=== PATIENT | female | born 1990 | race Two or more races ===

== ENCOUNTER → 2018-08-18 | Outpatient (REF) | payer OTHER | LOC: M SFHCLERA 13:43 | PROVIDERS: ATTEND Physician Assistant | DX: N39.0 Urinary tract infection, site not specified (principal) ==

== ENCOUNTER → 2018-11-13 | Outpatient (REF) | payer OTHER ==
[2018-11-14 07:20] LABS: CHLAMYDIA DNA AMPLIFICATION NEGATIVE (NEGATIVE); GC DNA AMPLIFICATION NEGATIVE (NEGATIVE)
== END ==
LOC: M SFHCLERA 14:30
PROVIDERS: ATTEND Physician Assistant Medical
DX: R10.2 Pelvic and perineal pain (principal)
CPT/HCPCS: 81002; 87070; 87086; 87205; 87661; G0463

== ENCOUNTER 2019-06-03 07:23 | Inpatient (IN) | payer OTHER ==
[~2019-06-03] VITALS: Ht 170.2 cm; Wt 103.0 kg
[~2019-06-03 07:23] MED LIST: PRENTAB9 PO; PROBCAP14 PO; VALT500T PO
[2019-06-03] MEDS ORDERED: BICITRA 30ML SOLN UDC PO ONE (08:00)
[2019-06-03] MEDS ORDERED: CLINDAMYCIN 900 MG in IV 1 EA IV ONE (08:00)
[2019-06-03] MEDS ORDERED: LACTATED RINGER'S 1000 ML IV ONE (08:00)
[2019-06-03] MEDS ORDERED: AZITHROMYCIN INJ 500 MG, VIAL MATE ADAPTER 1 EACH in D5W 250 ML IV ONE (08:00)
[2019-06-03] MEDS ORDERED: ceFAZolin SOD 2 GM in IV 1 EA IV ONE (08:15)
[2019-06-03] MEDS ORDERED: BUPIVACAINE HCL 0.25% 10 ML VIAL XX ONE (08:15)
--- NOTE | 2019-06-03 08:20 | HPE ---
DATE OF PLANNED ADMISSION: 06/03/2019 This lady is a 29-year-old, 3, para 1, last menstrual period (LMP) 09/08/2018, estimated date of confinement (EDC) 06/16/2019, booked for an elective primary section because of placenta previa and herpes simplex virus (HSV) outbreak. She also has a history of pruritic urticarial papules and plaques of (PUPPP), which is presently in the resolution phase. PAST HISTORY: In 2014, had a spontaneous . In 2016 at 40 weeks, spontaneous vaginal delivery of a live , uncomplicated, at term. Body mass index (BMI) is 30.54. Has had no active bleeding during the . Risk factors are placenta previa and HSV outbreak despite the prophylactic use of Zovirax. LAB WORK: Blood type is A positive, HIV negative, hepatitis negative, RPR negative, rubella immune. Varicella immune. Urine was negative. Gonorrhea and chlamydia are negative. 1-hour glucose is not available. GBS status is not available. Quad screen is negative. The rest of the examination is unremarkable. She is normocephalic, atraumatic. Neck full range of motions. Pupils equal and reactive to light. Distal pulses are symmetric. No evidence of deep venous thrombosis (DVT), pulmonary embolism (PE), or superficial phlebitis. Chest is clear bilaterally to bases. No wheezes or rhonchi. No costovertebral angle (CVA) tenderness. Abdomen is soft. Four quadrant bowel sounds are noted. Vertex presenting. heart rate is 140. Symphysis fundus height is at 32-35 weeks of gestation. She does have a bit of a rash, which is secondary resolution to her PUPPP. She has no longer pruritus. She has no arthralgia, myalgia, complaint of joint pain. No complaint of cough, wheeze, shortness of breath, or dyspnea on exertion. No bruising. No bleeding. No infections. Neurologically complete. No incontinence, urgency, or frequency. No nausea, vomiting, diarrhea, or constipation. She has no heat or cold sensitivities. GYNECOLOGIC HISTORY: Is unremarkable. She has had a history of HSV with outbreaks presently and is on Zovirax. PAST MEDICAL: Unremarkable. SURGERY HISTORY: Unremarkable. She does not smoke, drink, abuse drugs. No domestic violence. Good support with her . ALLERGIES: She is allergic to PENICILLIN with having hives. Presently, she is on Zovirax, vitamins, and probiotics. We discussed the issue of placenta previa and the need for primary section, both because of the placenta previa and the HSV outbreaks which are ongoing despite Valtrex. We discussed the risks and benefits of section, including hemorrhage, infection, perforation, , reoperation, remote possibility of hysterectomy remote possibility of blood transfusion, remote possibility of the ending up in the intensive care unit (NICU) or may have lacerations, tears, or scratches at time of delivery. We also reviewed the unlikelihood but high risk of having hysterectomy because of placenta previa and also the higher incidence of requiring a blood transfusion. Patient expressed understanding of same and is anxious to move forward. She is electively booked for 06/03/2019. We did explain about the two IVs being a hemorrhage risk higher than one. One will be for IV medication; the other in case we need it for blood. The discussion went to sterilization, and the patient was asking about tubal ligation. We mentioned that tubal ligation is a permanent procedure and there is a failure rate of less than 1%. It is only done if the patient is absolutely certain. We can place on the requisition for tubal; however, if there is an issue with the baby, if there is an issue with the uterus and raiza and bleeding, the procedure will be deferred. Patient expressed relief that we will ask prior to going forward with that procedure. Symphysis fundus height as mentioned was 35. heart was in the 140s. Blood pressure today was 121/58. Respirations are 18. Total weight is 220. Her BMI initially was 28.2. The patient is coming back for review of consent forms and signed documents in the next visit. We did discuss pelvic rest precautions to her , maintaining a full tank of gas in case of any bleeding, urgently getting the patient to hospital. Both expressed understanding. We had a 40-minute discussion. All questions were answered.
[2019-06-03] MEDS ORDERED: LR 1,000 ML IV SCH (09:00)
[2019-06-03 09:01] LABS: HEMATOCRIT 30.9 % (36.0-47.0); HEMOGLOBIN 9.4 g/dl (12.0-15.5); MEAN CORPUSCULAR HEMOGLOBIN 25.1 pg (27.0-33.0); MEAN CORPUSCULAR HGB CONC 30.4 g/dl (32.0-36.5); MEAN CORPUSCULAR VOLUME 82.6 fl (80.0-96.0); PLATELET COUNT, AUTOMATED 169 10^3/uL (150-450); RED BLOOD COUNT 3.74 10^6/uL (4.00-5.40); WHITE BLOOD COUNT 7.7 10^3/uL (4.0-10.0)
[2019-06-03] MEDS ORDERED: MORPHINE PRES-FREE INJ 10 MG/10 ML VIAL (J2274) As Ordered ONE (09:03)
[2019-06-03] MEDS ORDERED: ACETAMINOPHEN 650 MG SUPP PR ONE (09:45)
[2019-06-03] MEDS ORDERED: ONDANSETRON 4MG/2ML VIAL (J2405) IV PRN ×2 (10:15→12:00)
[2019-06-03] MEDS ORDERED: diphenhydrAMINE INJ 50MG/ML VIAL (J1200) IV PRN (10:15)
[2019-06-03] MEDS ORDERED: METOCLOPRAMIDE INJ 10MG/2ML VIAL (J2765) IV PRN (10:15)
[2019-06-03] MEDS ORDERED: NALOXONE INJ 0.4 MG/1 ML VIAL (J2310) IV PRN ×2 (10:15)
[2019-06-03] MEDS ORDERED: NALBUPHINE HCL 10 MG/ML AMP (J2300) IV PRN ×2 (10:15→12:00)
[2019-06-03] MEDS ORDERED: OXYTOCIN INJ 10 UNITS/ML VIAL (J2590) As Ordered ONE ×2 (10:24→10:46)
[2019-06-03] MEDS ORDERED: ONDANSETRON 4MG/2ML VIAL (J2405) As Ordered ONE ×2 (10:41→12:01)
[2019-06-03] MEDS ORDERED: dexameTHASONE 4 MG/ML 1ML VIAL (J1100) As Ordered ONE (10:41)
[2019-06-03] MEDS ORDERED: KETOROLAC 60 MG/2 ML VIAL (J1885) As Ordered ONE (10:41)
[2019-06-03 11:02] LABS: CORD GAS ABE V -2.1; CORD GAS HCO3 V 23.1 MEQ/L; CORD GAS O2 SAT V 76.2 %; CORD GAS PCO2 V 41.3 mmHg; CORD GAS PH V 7.366 UNITS; CORD GAS PO2 V 34.3 mmHg; CORD GAS SBC V 22.3 MEQ/L; CORD GAS TCO2 V 24.4 MEQ/L
[2019-06-03 11:04] LABS: CORD GAS ABE A -2.4; CORD GAS HCO3 A 24.9 MEQ/L; CORD GAS O2 SAT A 36.4 %; CORD GAS PCO2 A 54.8 mmHg; CORD GAS PH A 7.276 UNITS; CORD GAS PO2 A 18.2 mmHg; CORD GAS SBC A 21.3 MEQ/L; CORD GAS TCO2 A 26.6 MEQ/L
[2019-06-03] MEDS ORDERED: OXYTOCIN 30 UNITS IN 0.9% NaCl 500ML IV BAG (J2590) As Ordered ONE (11:52)
[2019-06-03] MEDS ORDERED: fentaNYL 100 MCG/2 ML INJECTION (J3010) IV PRN (12:00)
[2019-06-03] MEDS ORDERED: MEPERIDINE INJ 25 MG/ML VIAL (J2175) IV PRN (12:00)
[2019-06-03] MEDS ORDERED: PERCOCET 5MG/325MG TAB PO PRN ×3 (12:00→16:30)
[2019-06-03] MEDS ORDERED: HYDROMORPHONE HCL 0.5 MG/ 0.5 ML SYRINGE (J1170 PER 1) IV PRN (12:00)
[2019-06-03] MEDS ORDERED: HYDROMORPHONE HCL 0.5 MG/ 0.5 ML SYRINGE (J1170 PER 1) As Ordered ONE (12:01)
[2019-06-03] MEDS ORDERED: RHOGAM 300 MCG (1500 IU) INJ (J2790) IM SCH ×2 (12:30→12:45)
[2019-06-03] MEDS ORDERED: MEASLES,MUMPS,RUBELLA VACCINE INJ (MMR-II) (90707) SC SCH ×3 (12:30→12:45)
[2019-06-03] MEDS ORDERED: ACETAMINOPHEN 500 MG TAB PO PRN (12:45)
[2019-06-03] MEDS ORDERED: DOCUSATE SODIUM 100 MG CAP PO PRN (12:45)
[2019-06-03] MEDS ORDERED: MOM 30ML SUSPENSION UDC PO PRN (12:45)
[2019-06-03] MEDS ORDERED: ACETAMINOPHEN TAB 650MG DOSE (2X325MG) PO PRN (12:45)
[2019-06-03] MEDS ORDERED: OXYTOCIN DRIP 30 UNITS in IV 1 EA IV ONE (13:00)
--- NOTE | 2019-06-03 13:11 | RO ---
DATE OF PROCEDURE: 06/03/2019 PREOPERATIVE DIAGNOSIS: This lady is a 29-year-old, 3, para 2, admitted for primary section and bilateral tubal ligation by Filshie clip with satisfied parity. Her primary section risk was placenta previa without hemorrhage. POSTOPERATIVE DIAGNOSIS: This lady is a 29-year-old, 3, para 2, admitted for primary section and bilateral tubal ligation by Filshie clip with satisfied parity. Her primary section risk was placenta previa without hemorrhage, plus polyhydramnios. OPERATION PROPOSED: Primary section and bilateral tubal ligation by Filshie clip. OPERATION PERFORMED: Primary section, bilateral tubal ligation by Filshie clip. SURGEON: Dr. Cruz Smith MANAGER ACTION: Dr. Tu De Paz for extraction, extraction and visualization. ANESTHESIA: Spinal plus local anesthetic for intraperitoneal procedures. ESTIMATED BLOOD LOSS: 1000 mL. DESCRIPTION OF PROCEDURE: Sequentials were in place. Antibiotics appropriately one hour preoperatively. Roblero catheter in the bladder draining clear urine and acetaminophen suppository 1300 mg per rectum. After adequate time out, prepped and draped in the supine position. Pfannenstiel incision was made two fingerbreadths above the symphysis pubis passing through abdominal layers securing hemostasis. Opening the peritoneal cavity, we placed the Mobius retractor in place and then reflected the bladder down anteriorly. A low transverse incision was made into the uterus and unfortunately we cut right into the placenta. We had to go through the placenta, do an artificial rupture of membranes (AROM), draining clear liquid, approximately 600-700 mL of amniotic fluid. We were then able to extract the baby, a live male infant, weighing 9 pounds 4 ounces 4200 grams, Apgars of 8 and 9 at one and five minutes respectively. Arterial pH 7.27, base excess -2.4; venous pH 7.36, base excess -2.1. The placenta was manually removed and came off the anterior wall quite nicely and came off the posterior wall as well, just a few membranes were removed, and the uterus was raiza well down under Pitocin. We then swept out the intrauterine cavity. There was no evidence of tissue or membranes left. The lower segment was oversewn in the usual fashion in two layers, imbricating the second layer. Then reperitonealization was performed. With instrument and pad count correct, we exposed both tubes. We asked the patient again if she wished to have a tubal ligation. She responded in the affirmative. Therefore, bilateral tubal ligation with Filshie clips were applied with a stay suture proximal to the clip for insurance purposes. We then went ahead and replaced the tubes and ovaries back in the abdomen. We visualized the lower segment which was clean and dry. Then closed the abdomen with running stitch for the peritoneum, same for the fascia, interrupted for subcutaneous, Dexon to the skin, Marcaine 0.25% 8 mL at the incisional site. We did put on Telfa and reinforced bandage as there was some oozing from the incisional site. The patient was sent to recovery in good condition.
[2019-06-03 13:20] VITALS: BP 132/76
[2019-06-03 13:53] VITALS: BP 133/74
[2019-06-03 15:00] VITALS: BP 133/74
[2019-06-03] MEDS: LR 1,000 ML IV SCH (16:17)
[2019-06-03] MEDS ORDERED: SIMETHICONE 80 MG CHEW TAB PO PRN (16:30)
[2019-06-03] MEDS: ONDANSETRON 4MG/2ML VIAL (J2405) IV SCH (16:52)
[2019-06-03] MEDS: KETOROLAC 30 MG/ML VIAL (J1885) IV SCH (17:59)
[2019-06-03 18:14] VITALS: BP 128/70
[2019-06-03 22:00] VITALS: BP 116/63
[2019-06-04] VITALS (7 sets, daily range): BP systolic 98–136; BP diastolic 51–81
[2019-06-04] MEDS: ONDANSETRON 4MG/2ML VIAL (J2405) IV SCH ×3 (00:41→12:00)
[2019-06-04] MEDS: KETOROLAC 30 MG/ML VIAL (J1885) IV SCH ×2 (00:41→06:15)
[2019-06-04] MEDS: LR 1,000 ML IV SCH ×3 (03:00→12:27)
[2019-06-04 07:43] LABS: HEMATOCRIT 26.7 % (36.0-47.0); HEMOGLOBIN 8.5 g/dl (12.0-15.5); MEAN CORPUSCULAR HEMOGLOBIN 25.5 pg (27.0-33.0); MEAN CORPUSCULAR HGB CONC 31.8 g/dl (32.0-36.5); MEAN CORPUSCULAR VOLUME 80.2 fl (80.0-96.0); PLATELET COUNT, AUTOMATED 174 10^3/uL (150-450); RED BLOOD COUNT 3.33 10^6/uL (4.00-5.40); WHITE BLOOD COUNT 10.1 10^3/uL (4.0-10.0)
[2019-06-04] MEDS ORDERED: PRENATAL VITAMINS CHEWABLE TABLET PO SCH ×2 (09:00)
[2019-06-04] MEDS: PRENATAL VITAMINS CHEWABLE TABLET PO SCH (09:41)
--- NOTE | 2019-06-04 10:12 | IPN ---
DATE: 06/04/2019 This lady had a primary section for placenta previa. She is now 24 hours since her section. Her blood pressure today is 111/54, respirations are 18, pulse 78, temperature is 99.4. Her admitting hemoglobin was 9.4, hematocrit 30.9 and platelets were 169 day hemoglobin was 8.5, hematocrit 26.7 and platelets are 174 and she is asymptomatic. On examination of her abdomen, the uterus is 2 below. Lochia is moderate. Four-quadrant bowel sounds are noted. The pressure dressing was removed. There is some just old dried blood on the incisional site under the Telfa. Nontender, non bruising and she is feeling well. The rest examination unremarkable. She is normocephalic, atraumatic. Neck: Full range of motion. Pupils equal and reactive to light. Distal pulses symmetric. No evidence of deep venous thrombosis (DVT), pulmonary embolus (PE) or superficial phlebitis. Chest is clear bilaterally bases. No wheezes or rhonchi. No costovertebral angle (CVA) tenderness. Abdomen soft as mentioned for quadrant bowel sounds are noted. She has no incontinency or frequency. No nausea, vomiting, diarrhea or constipation. The nausea is resolved after the Zofran IV and the discontinuation narcotic analgesics. In summary we have a term gestation primary section for placenta previa, doing well. Planned on discharge for tomorrow with baby and the patient is breast-feeding and doing well.
[2019-06-04] MEDS: IBUPROFEN 800 MG TAB PO SCH ×2 (14:47→22:28)
[2019-06-04] MEDS ORDERED: SLF 3 ML SYR IV PRN (17:45)
[2019-06-04] MEDS: SLF 3 ML SYR IV SCH (22:00)
[2019-06-05 02:35] VITALS: BP 128/72
[2019-06-05] MEDS: IBUPROFEN 800 MG TAB PO SCH (05:37)
[2019-06-05] MEDS: SLF 3 ML SYR IV SCH (06:00)
[2019-06-05 06:11] VITALS: BP 128/68
[2019-06-05] MEDS ORDERED: DOCU100C16 PO (06:34)
[2019-06-05] MEDS ORDERED: PERCOCET PO ×2 (06:34)
[2019-06-05] MEDS ORDERED: PRENCHW PO (06:34)
[2019-06-05] MEDS ORDERED: IBUP80TA PO (06:34)
[2019-06-05] MEDS: PRENATAL VITAMINS CHEWABLE TABLET PO SCH (07:46)
--- NOTE | 2019-06-05 11:52 | IPN ---
DATE: 06/05/2019 This patient requested circumcision of her male after discussing risks and benefits of circumcision, the medical and nonmedical indications, penile block and aftercare. Expressed understanding of penile block aftercare, signed the consent form. All questions were answered. 20-minute discussion. We await the clearance by the caption writer.
--- NOTE | 2019-06-05 19:20 | DSES ---
DATE OF ADMISSION: 06/03/2019 DATE OF DISCHARGE: 06/05/2019 This lady is a 29-year-old, 3, now para 2, who was admitted for an elective primary section because of an anterior placenta previa and satisfied parity, bilateral tubal ligation by Filshie clip. She delivered a live male infant, 9 pounds 4 ounces, 4200 grams, scores of 8 and 9 at one and five minutes, respectively. Arterial pH 7.27, base excess -2.4, venous pH 7.36, base excess -2.1. On her second day, we discussed phlebitis, cystitis, mastitis, endometritis, and cellulitis, diet, exercise, pain management, perineal, breast, and wound care. Her risk factors are her body mass index (BMI) was 30.5, she was herpes simplex virus (HSV) prophylactically treated, placenta previa anterior with no bleed, and she had pruritic urticarial papules and plaques of (PUPPP), which had resolved. On discharge, her blood pressure is 128/68, respirations are 18, pulse 86, temperature is 97.8. Her discharge hemoglobin was 8.5, hematocrit 26.2, and platelets were 174. Her admitting hemoglobin was 9.4, hematocrit 30.9, and platelets were 169. She was known to have anemia preoperatively despite the fact that she did not have any bleed. The rest of examination unremarkable. Normocephalic, atraumatic. Neck full range of motions. Pupils equal and reactive to light. Distal pulses are symmetric. No evidence of deep venous thrombosis (DVT), pulmonary embolism (PE), or superficial phlebitis. Chest is clear bilaterally to base. No wheezes or rhonchi. No costovertebral angle (CVA) tenderness. Abdomen soft. Uterus 2 below. Lochia is moderate. Four quadrant bowel sounds are noted. Incision is clean and dry. She has no rashes, lesions, or pruritus. No arthralgia, myalgia. No complaint of joint pain. No complaint of cough, wheeze, shortness of breath, or dyspnea on exertion. No nausea, vomiting, diarrhea, or constipation. She has no diabetic issues. No other issues were noted. She is , doing well, mobilizing, having passed gas, and voiding well. In summary, we have a term gestation for primary section for anterior placenta previa. Discharged to followup in the office 2 weeks for incision check, 6 weeks for check. Medications were dispensed at [place] and picked up by her .
== END 2019-06-05 11:35 | disposition home or self-care (01) | DRG 784 ==
LOC: M LDI 07:23 → M OBS 13:12
PROVIDERS: ADMIT Obstetrics & Gynecology; ATTEND Obstetrics & Gynecology
PROC: 0UL70ZZ Occlusion of Bilateral Fallopian Tubes, Open Approach (ICD-10-PCS; 2019-06-03)
PROC: 10D00Z1 Extraction of Products of Conception, Low, Open Approach (ICD-10-PCS; principal; 2019-06-03 09:30)
DX: O44.03 Complete placenta previa NOS or without hemorrhage, third trimester (principal); O98.32 Other infections with a predominantly sexual mode of transmission complicating childbirth; Z3A.38 38 weeks gestation of pregnancy; O99.02 Anemia complicating childbirth; D64.9 Anemia, unspecified; A60.09 Herpesviral infection of other urogenital tract; Z37.0 Single live birth

== ENCOUNTER 2019-11-04 12:44 | Emergency (ER) | payer OTHER ==
[~2019-11-04] VITALS: Ht 170.2 cm; Wt 88.0 kg
[~2019-11-04 12:44] MED LIST changes: +DOCU100C16 PO; +IBUP80TA PO; +PERCOCET PO; +PRENCHW PO
[2019-11-04 17:32] VITALS: BP 120/60
== END 2019-11-04 17:33 | disposition home or self-care (01) ==
LOC: M ED 12:44
DX: B34.9 Viral infection, unspecified (principal); Z88.0 Allergy status to penicillin